=== PATIENT | female | born 1955 | race African-American/Black ===

== ENCOUNTER 2018-08-17 16:11 | Observation (INO) ==
[2018-08-17 18:02] LABS: Basophils % 0.3 % (0.0-0.8); Eosinophils # 0.1 10*3/uL (0.0-0.87); Hemoglobin 11.6 GM/DL (12.0-16.0); Immature Granulocytes % 0.5 %; Immature Granulocytes Absolute 0.03 #; Lymphocytes # 1.8 10*3/uL (1.4-4.0); Lymphocytes % 30.1 % (21.3-54.2); Mean Corpuscular HGB Conc 30.5 GM/DL (32-36); Mean Corpuscular Hemoglobin 27 PG (27-34); Mean Corpuscular Volume 89.4 FL (87-102); Mean Platelet Volume 10.9 FL (9.6-12.0); Monocytes # 0.4 10*3/uL (0.11-0.8); Monocytes % 7.2 % (1.7-12.7); Neutrophils # 3.6 10*3/uL (1.4-7.4); Neutrophils % 59.9 % (38.7-73.9); Platelet Count 197 T/CUMM (130-400); Red Blood Count 4.25 MC/CUMM (3.8-5.5); Red Cell Distribution Width 13.1 % (9.3-17.3)
[2018-08-17 18:25] LABS: Troponin I < 0.015 NG/ML (0.00-0.045)
[2018-08-17 18:31] LABS: Alanine Aminotransferase 54 U/L (13-56); Albumin 3.1 G/DL (3.4-5.0); Alkaline Phosphatase 105 U/L (45-117); Aspartate Amino Transferase 51 U/L (0-37); Bilirubin,Total < 0.39 MG/DL (0.2-1.0); Blood Urea Nitrogen 11 MG/DL (7-18); Calcium 8.9 MG/DL (8.5-10.1); Glucose 124 MG/DL (74-106); Osmolality,Calculated 278.4 MOS/KG (273-304); Potassium 3.5 MMOL/L (3.5-5.1); Sodium 140 MMOL/L (136-145); Total Protein 7.1 G/DL (6.4-8.3)
[2018-08-17 19:01] LABS: Apearance,Urine Slightly Hazy (Clear); Bacteria,Urine Occasional /HPF (Few); Bilirubin,Urine Negative (Negative); Blood, Urine Negative (Negative); Glucose,Urine (UA) Negative (Negative); Ketones,Urine Negative (Negative); Mucus,Urine Occasional /LPF (Occasional); Nitrite,Urine Negative (Negative); Protein,Urine Negative; Squamous Epithelial Cell,Urine Occasional /HPF (0-10); Urine Color Yellow (Yellow); Urine Specific Gravity 1.017 (1.001-1.035); WBC,Urine 2 /HPF (0-6)
[2018-08-17] MEDS ORDERED: MORPHINE 4 MG/1 ML VIAL IV STA (21:12)
[2018-08-17] MEDS ORDERED: ONDANSETRON 4 MG/2 ML VIAL IV STA (21:13)
[2018-08-17] MEDS ORDERED: MORPHINE 4 MG/1 ML VIAL ONE (21:14)
[2018-08-17] MEDS ORDERED: ONDANSETRON 4 MG/2 ML VIAL ONE (21:14)
[2018-08-17] MEDS ORDERED: ONDANSETRON 4 MG/2 ML VIAL IV PRN (22:29)
[2018-08-17] MEDS ORDERED: ZALEPLON 5 MG CAPSULE PO PRN (22:29)
[2018-08-17] MEDS ORDERED: MAGNESIUM SULF RIDER 1 GM in PREMIX 1 EACH IV ONE (22:49)
[2018-08-17] MEDS: ENOXAPARIN 40 MG/0.4 ML SYRINGE SUBCUT SCH (23:54)
[2018-08-18] MEDS: ACETAMINOPHEN 325 MG TABLET PO PRN ×4 (02:09→21:44)
[2018-08-18] MEDS: LEVOTHYROXINE 100 MCG TABLET PO SCH (06:23)
[2018-08-18 07:55] LABS: Risk Ratio 3.58
[2018-08-18 08:09] LABS: Troponin I < 0.015 NG/ML (0.00-0.045)
[2018-08-18] MEDS: clonazePAM 0.5 MG TABLET PO SCH ×3 (08:14→20:26)
[2018-08-18] MEDS: CALCIUM (CARBONATE)/VITAMIN D 600 MG-400 UNIT TABLET PO SCH (08:14)
[2018-08-18] MEDS: METOPROLOL TARTRATE 25 MG TABLET PO SCH ×2 (08:15→20:27)
[2018-08-18] MEDS: ASPIRIN EC 325 MG TABLET PO SCH (08:15)
[2018-08-18] MEDS: MAGNESIUM CHLORIDE 64 MG TABLET PO SCH ×2 (08:15→20:27)
[2018-08-18] MEDS: MELOXICAM 7.5 MG TABLET PO SCH (08:15)
[2018-08-18] MEDS: FUROSEMIDE 40 MG TABLET PO SCH ×2 (08:15→17:18)
[2018-08-18] MEDS: buPROPion XL 150 MG TABLET PO SCH (08:16)
[2018-08-18] MEDS: GABAPENTIN 300 MG CAPSULE PO SCH ×3 (08:16→20:27)
[2018-08-18] MEDS: FLUTICASONE/SALMETEROL 250-50 DISKUS 14 DOSE INH SCH (08:23)
[2018-08-18] MEDS ORDERED: PANTOPRAZOLE 40 MG TABLET PO SCH (09:00)
[2018-08-18 10:43] LABS: Troponin I < 0.015 NG/ML (0.00-0.045)
[2018-08-18] MEDS ORDERED: GLUCAGON 1 MG VIAL IM PRN (10:43)
[2018-08-18] MEDS ORDERED: DEXTROSE 50% 25 GM/50 ML SYRINGE IV PRN (10:43)
[2018-08-18] MEDS ORDERED: MAGNESIUM SULF RIDER 4 GM in PREMIX 1 EACH IV PRN (10:53)
[2018-08-18] MEDS ORDERED: MAGNESIUM SULF RIDER 2 GM in PREMIX 1 EACH IV PRN (10:53)
[2018-08-18] MEDS: INSULIN REGULAR 100 UNIT/ML SUBCUT SCH ×3 (12:57→20:34)
[2018-08-18] MEDS: ALBUTEROL/IPRATROPIUM 3 ML NEB RESP TX SCH ×2 (13:15→19:47)
[2018-08-18 14:15] LABS: Troponin I < 0.015 NG/ML (0.00-0.045)
[2018-08-18] MEDS ORDERED: SIMVASTATIN 10 MG TABLET PO SCH (17:00)
[2018-08-18] MEDS ORDERED: MONTELUKAST 10 MG TABLET PO SCH (21:00)
[2018-08-18] MEDS: ENOXAPARIN 40 MG/0.4 ML SYRINGE SUBCUT SCH (21:44)
[2018-08-19] MEDS: ALBUTEROL/IPRATROPIUM 3 ML NEB RESP TX SCH ×3 (01:05→13:05)
[2018-08-19 04:32] LABS: Calcium 8.3 MG/DL (8.5-10.1); Osmolality,Calculated 285.1 MOS/KG (273-304); Potassium 3.7 MMOL/L (3.5-5.1)
[2018-08-19] MEDS: LEVOTHYROXINE 100 MCG TABLET PO SCH (06:02)
[2018-08-19] MEDS: FLUTICASONE/SALMETEROL 250-50 DISKUS 14 DOSE INH SCH ×2 (06:04→09:42)
[2018-08-19] MEDS: MAGNESIUM CHLORIDE 64 MG TABLET PO SCH (09:37)
[2018-08-19] MEDS: clonazePAM 0.5 MG TABLET PO SCH (09:37)
[2018-08-19] MEDS: buPROPion XL 150 MG TABLET PO SCH (09:37)
[2018-08-19] MEDS: MELOXICAM 7.5 MG TABLET PO SCH (09:37)
[2018-08-19] MEDS: ASPIRIN EC 325 MG TABLET PO SCH (09:37)
[2018-08-19] MEDS: GABAPENTIN 300 MG CAPSULE PO SCH (09:38)
[2018-08-19] MEDS: FUROSEMIDE 40 MG TABLET PO SCH (09:38)
[2018-08-19] MEDS: CALCIUM (CARBONATE)/VITAMIN D 600 MG-400 UNIT TABLET PO SCH (09:38)
[2018-08-19] MEDS: INSULIN REGULAR 100 UNIT/ML SUBCUT SCH ×2 (09:42→12:26)
[2018-08-19] MEDS: METOPROLOL TARTRATE 25 MG TABLET PO SCH (09:44)
[2018-08-19] MEDS: ACETAMINOPHEN 325 MG TABLET PO PRN (12:28)
[2018-08-19 12:30] VITALS: BP 129/69
[2018-08-22] MEDS ORDERED: ERGOCALCIFEROL 50,000 UNIT CAPSULE PO SCH (09:00)
== END 2018-08-19 14:38 | disposition home or self-care (01) ==
LOC: N.EDINP 16:11 → N.ED 16:11 → SUATTDRO 21:43 → SUPCPDRO 21:43 → N.4E 22:14
PROVIDERS: ADMIT Internal Medicine; ATTEND Hospitalist